=== PATIENT | male | born 1995 | race African-American/Black ===

== ENCOUNTER 2020-09-28 09:52 | Emergency (ER) | payer MEDICAID, OTHER ==
[~2020-09-28] VITALS: Ht 195.6 cm; Wt 104.3 kg
[2020-09-28 09:55] VITALS: BP 113/69
== END 2020-09-28 11:00 | disposition left against medical advice (07) ==
LOC: ER 09:52
DX: Z48.01 Encounter for change or removal of surgical wound dressing (principal); Z53.21 Procedure and treatment not carried out due to patient leaving prior to being seen by health care provider

== ENCOUNTER 2024-12-19 23:43 | Emergency (ER) | payer MEDICAID, OTHER ==
[~2024-12-19] VITALS: Ht 195.6 cm; Wt 109.0 kg
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
[2024-12-20 01:21] VITALS: BP 139/76; PULSE 84; RESP 17; TEMP 98; O2SAT 96
== END 2024-12-20 01:37 | disposition home or self-care (01) ==
LOC: ER 23:43
DX: S01.81XA Laceration without foreign body of other part of head, initial encounter (principal); S13.4XXA Sprain of ligaments of cervical spine, initial encounter; Y08.89XA Assault by other specified means, initial encounter; Y93.89 Activity, other specified; Y92.89 Other specified places as the place of occurrence of the external cause; Y99.8 Other external cause status
CPT/HCPCS: 12011; 70450; 72125

== ENCOUNTER 2024-12-26 11:58 | Emergency (ER) | payer MEDICAID ==
[~2024-12-26] VITALS: Ht 195.6 cm; Wt 113.0 kg
[2024-12-26 12:00] VITALS: BP 106/51; PULSE 61; RESP 15; TEMP 97.6; O2SAT 97
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
== END 2024-12-26 12:33 | disposition home or self-care (01) ==
LOC: ER 11:58
DX: S01.81XD Laceration without foreign body of other part of head, subsequent encounter (principal); Z48.02 Encounter for removal of sutures; X58.XXXD Exposure to other specified factors, subsequent encounter